=== PATIENT | female | born 2000 | race Caucasian/White ===

== ENCOUNTER 2023-01-09 15:19 | Emergency (ER) | payer SELFPAY ==
[~2023-01-09] VITALS: Ht 177.8 cm; Wt 99.8 kg
[2023-01-09 17:46] VITALS: BP 116/74; TEMP 97.8; O2SAT 100
== END 2023-01-09 17:46 | disposition home or self-care (01) ==
LOC: ER 15:22
DX: T40.411A Poisoning by fentanyl or fentanyl analogs, accidental (unintentional), initial encounter (principal); F41.9 Anxiety disorder, unspecified; Y92.89 Other specified places as the place of occurrence of the external cause